=== PATIENT | female | born 1955 | race Caucasian/White ===

== ENCOUNTER 2017-12-17 12:25 | Day surgery (SDC) | payer SELFPAY ==
[2017-12-17] VITALS (8 sets, daily range): BP systolic 138–165; BP diastolic 72–88; PULSE 54–77; RESP 14–20; TEMP 97.7–98.1; O2SAT 96–99
[~2017-12-17 12:25] MED LIST: LIDOCAINE HCL 1% PF 5 ML SYRINGE OTHER ONE; PHENYLEPH/NS 1000 MCG/10 ML SYR IV ONE; PROPOFOL 200 MG/20 ML AMP IV ONE; ePHEDrine/NS 25 MG/5 ML SYRINGE IV ONE
--- NOTE | 2017-12-17 13:20 | PD ---
HPI Chief Complaint: Eye Problems/Injury Time Seen by Provider: 13:07 Travel History International Travel<30 days: No Contact w/Intl Traveler<30days: No Traveled to known affect area: No History of Present Illness HPI 62-year-old female with history of hypertension and hypothyroidism presents for evaluation of right eye blindness. Symptoms started 1 week ago. She was seen by retinal specialist Dr. Donnie Roland 5 days ago and diagnosed with a complete retinal detachment. She was referred here this morning by Dr. Roland. She reports that she is able to see shadows in her right eye but otherwise has acute significant decreased vision. Denies any pain. npo since last night except one sip of water this morning to swallow her morning pills. No other complaints at this time. [facility] Social History Alcohol Use: Yes Tobacco Use: No Allergies-Medications (Allergen,Severity, Reaction): Coded Allergies: No Known Allergies (Unverified , 12/17/17) Review of Systems General / Constitutional: No: Fever, Chills Eyes: Positive: Blurred Vision, Blindness, No: Pain Physical Exam Narrative GENERAL: Well-developed well-nourished female in no acute distress SKIN: Warm and dry. HEAD: Atraumatic. Normocephalic. EYES: Pupils equal and round reactive to light extraocular muscles are intact. No scleral icterus. No injection or drainage. ENT: No nasal bleeding or discharge. Mucous membranes pink and moist. NECK: Trachea midline. No JVD. CARDIOVASCULAR: Regular rate and rhythm. No murmur appreciated. RESPIRATORY: No accessory muscle use. Clear to auscultation. Breath sounds equal bilaterally. Data Data Last Documented VS Vital Signs Date Time Temp Pulse Resp B/P (MAP) Pulse Ox O2 Delivery O2 Flow Rate FiO2 12/17/17 12:48 97.7 60 14 162/82 (108) Orders Orders Complete Blood Count With Diff (12/17/17 12:51) Basic Metabolic Panel (Bmp) (12/17/17 12:51) Coag Profile (12/17/17 12:51) Chest, Pa & Lat (12/17/17 ) Electrocardiogram (12/17/17 ) Admit Order (Ed Use Only) (12/17/17 14:26) Labs Laboratory Tests Test 12/17/17 13:55 White Blood Count 4.8 TH/MM3 Red Blood Count 4.01 MIL/MM3 Hemoglobin 13.4 GM/DL Hematocrit 39.2 % Mean Corpuscular Volume 97.6 FL Mean Corpuscular Hemoglobin 33.5 PG Mean Corpuscular Hemoglobin Concent 34.3 % Red Cell Distribution Width 14.4 % Platelet Count 300 TH/MM3 Mean Platelet Volume 6.4 FL Neutrophils (%) (Auto) 45.0 % Lymphocytes (%) (Auto) 32.6 % Monocytes (%) (Auto) 11.4 % Eosinophils (%) (Auto) 10.4 % Basophils (%) (Auto) 0.6 % Neutrophils # (Auto) 2.2 TH/MM3 Lymphocytes # (Auto) 1.6 TH/MM3 Monocytes # (Auto) 0.5 TH/MM3 Eosinophils # (Auto) 0.5 TH/MM3 Basophils # (Auto) 0.0 TH/MM3 CBC Comment DIFF FINAL Differential Comment Prothrombin Time 10.8 SEC Prothromb Time International Ratio 1.1 RATIO Activated Partial Thromboplast Time 25.4 SEC MDM Medical Decision Making Medical Screen Exam Complete: Yes Emergency Medical Condition: Yes Medical Record Reviewed: Yes Differential Diagnosis Retinal detachment, vitreous hemorrhage, central retinal artery occlusion, CVA Narrative Course I discussed with Dr. Roland who plans on taking her to same day surgery today. Diagnosis Primary Impression: Retinal detachment Admitting Information Admitting Physician Requests: Michael Gage Dec 17, 2017 13:20
[2017-12-17 14:06] LABS: AUTOMATED NEUTROPHIL # 2.2 TH/MM3 (1.8-7.7); BASOPHIL % 0.6 % (0.0-2.0); EOSINOPHIL # 0.5 TH/MM3 (0-0.4); EOSINOPHIL % 10.4 % (0.0-4.0); HEMATOCRIT 39.2 % (35.0-46.0); HEMOGLOBIN 13.4 GM/DL (11.6-15.3); LYMPH % 32.6 % (9.0-44.0); LYMPHOCYTE # 1.6 TH/MM3 (1.0-4.8); MEAN CELL VOLUME 97.6 FL (80.0-100.0); MEAN CORPUSCULAR HEMOGLOBIN 33.5 PG (27.0-34.0); MEAN CORPUSCULAR HGB CONC 34.3 % (32.0-36.0); MEAN PLATELET VOLUME 6.4 FL (7.0-11.0); MONO % 11.4 % (0.0-8.0); MONOCYTE # 0.5 TH/MM3 (0-0.9); PLATELET COUNT 300 TH/MM3 (150-450); RED BLOOD COUNT 4.01 MIL/MM3 (4.00-5.30); RED CELL DISTRIBUTION WIDTH 14.4 % (11.6-17.2); WHITE BLOOD COUNT 4.8 TH/MM3 (4.0-11.0)
--- NOTE | 2017-12-17 14:12 | RADRPT ---
EXAM DATE/TIME: 12/17/2017 13:43 [facility] COMPARISON: No previous studies available for comparison. INDICATIONS : Evaluate for pneumonia, pneumothorax or communicable disease. Preop chest for repair of detached reti na today MEDICAL HISTORY : None. SURGICAL HISTORY : None. ENCOUNTER: Initial ACUITY: 1 day PAIN SCORE: 0/10 LOCATION: Bilateral chest FINDINGS: PA and lateral views of the chest demonstrate a normal-sized cardiac silhouette. There is no effusion , consolidation, or pneumothorax. The bones and soft tissues demonstrate no acute abnormality. Breast implants are present. CONCLUSION: No acute cardiopulmonary abnormality is identified. Yrn Del Valle MD on December 17, 2017 at 14:10 Board Certified Radiologist. This report was verified electronically.
[2017-12-17 14:14] LABS: INTERNATIONAL NORMALIZED RATIO 1.1 RATIO; PROTHROMBIN TIME - PATIENT 10.8 SEC (9.8-11.6)
[2017-12-17] MEDS ORDERED: LEVO.1 PO (14:29)
[2017-12-17] MEDS ORDERED: LISI20TA PO (14:29)
[2017-12-17 14:40] LABS: CALCIUM 9.6 MG/DL (8.5-10.1); CREATININE 0.77 MG/DL (0.50-1.00)
[2017-12-17] MEDS ORDERED: BALANCED SALT SOLN OPHT IRRIG 15 ML BTL ONE (17:42)
[2017-12-17] MEDS ORDERED: ceFAZolin INJ 1,000 MG VIAL ONE (17:42)
[2017-12-17] MEDS ORDERED: DEXAMETHASONE SOD PHOS 4 MG/ML VIAL ONE (17:42)
[2017-12-17] MEDS ORDERED: STERILE WATER FOR INJECTION 20 ML VIAL ONE (17:42)
[2017-12-17] MEDS ORDERED: TOBRAMYCIN/DEXAMETHASONE OPTH OINT 3.5 GM TUBE ONE (17:43)
[2017-12-17] MEDS ORDERED: TRIAMCINOLONE ACETONIDE 40 MG/ML VIAL ONE (17:43)
[2017-12-17] MEDS ORDERED: EPINEPHrine HCL (1:1000) 1 MG/ML VIAL ONE (17:43)
[2017-12-17] MEDS ORDERED: fentaNYL CITRATE 250 MCG/5 ML AMP ONE (18:37)
[2017-12-17] MEDS ORDERED: MOXIFLOXACIN 0.5% OPHT SOLN 3 ML BTL RIGHT EYE ONE (19:00)
[2017-12-17] MEDS ORDERED: PHENYLEPHRINE HCL 10% OPTH SOLN 5 ML BTL RIGHT EYE ONE (19:00)
[2017-12-17] MEDS ORDERED: prednisoLONE ACETATE 1% OPHT SUSP 5 ML BTL RIGHT EYE ONE (19:00)
[2017-12-17] MEDS: PHENYLEPHRINE HCL 2.5% OPTH SOLN 2 ML BTL RIGHT EYE SCH ×4 (19:05→19:27)
[2017-12-17] MEDS: CYCLOPENTOLATE HCL 1% OPHT SOLN 2 ML BTL RIGHT EYE SCH ×4 (19:05→19:27)
[2017-12-17] MEDS: ATROPINE SULFATE 1% OPHT SOLN 5 ML BTL RIGHT EYE SCH ×4 (19:05→19:27)
[2017-12-17] MEDS: TROPICAMIDE 1% OPHT SOLN 15 ML BTL RIGHT EYE SCH ×4 (19:05→19:27)
[2017-12-17] MEDS ORDERED: DO NOT ADM ANY ANTICOAGULANT DRUGS PRN (21:22)
[2017-12-17] MEDS ORDERED: *ONDANSETRON 4 MG VIAL PERIprocedural Use ONLY ONE (21:35)
[2017-12-17] MEDS ORDERED: ACETAMINOPHEN 325 MG TAB PO PRN (22:45)
--- NOTE | 2017-12-18 11:31 | EKG ---
Date Performed: 12/17/2017 Time Performed: 14:05:15 PTAGE: 62 years EKG: SINUS BRADYCARDIA BORDERLINE ECG NO PREVIOUS TRACING DOCTOR: Juan A Lopez Interpretating Date/Time 12/18/2017 11:28:06
--- NOTE | 2017-12-19 15:39 | PD ---
Physical Exam Date Seen by Provider: Dec 17, 2017 Time Seen by Provider: 14:00 Narrative I am seeing this patient with Michael Lazaro PA-C. This is a 62-year-old female who presents 1 week after having an episode of right-sided eye blindness. Seen and evaluated by Dr.Karl Loera who evaluated her and found her to have a complete right retinal detachment. The patient presents here today at the request of Dr. loera for presurgical evaluation. He intends to take her to the operating room and repair her detached retina. The patient has no new complaints today. Data Data Last Documented VS Vital Signs Date Time Temp Pulse Resp B/P (MAP) Pulse Ox O2 Delivery O2 Flow Rate FiO2 12/17/17 14:35 61 18 165/79 (107) 96 Room Air 12/17/17 12:48 97.7 Orders Orders Complete Blood Count With Diff (12/17/17 12:51) Basic Metabolic Panel (Bmp) (12/17/17 12:51) Coag Profile (12/17/17 12:51) Chest, Pa & Lat (12/17/17 ) Electrocardiogram (12/17/17 ) Admit Order (Ed Use Only) (12/17/17 14:26) Labs Laboratory Tests Test 12/17/17 13:55 White Blood Count 4.8 TH/MM3 Red Blood Count 4.01 MIL/MM3 Hemoglobin 13.4 GM/DL Hematocrit 39.2 % Mean Corpuscular Volume 97.6 FL Mean Corpuscular Hemoglobin 33.5 PG Mean Corpuscular Hemoglobin Concent 34.3 % Red Cell Distribution Width 14.4 % Platelet Count 300 TH/MM3 Mean Platelet Volume 6.4 FL Neutrophils (%) (Auto) 45.0 % Lymphocytes (%) (Auto) 32.6 % Monocytes (%) (Auto) 11.4 % Eosinophils (%) (Auto) 10.4 % Basophils (%) (Auto) 0.6 % Neutrophils # (Auto) 2.2 TH/MM3 Lymphocytes # (Auto) 1.6 TH/MM3 Monocytes # (Auto) 0.5 TH/MM3 Eosinophils # (Auto) 0.5 TH/MM3 Basophils # (Auto) 0.0 TH/MM3 CBC Comment DIFF FINAL Differential Comment Prothrombin Time 10.8 SEC Prothromb Time International Ratio 1.1 RATIO Activated Partial Thromboplast Time 25.4 SEC Blood Urea Nitrogen 17 MG/DL Creatinine 0.77 MG/DL Random Glucose 86 MG/DL Calcium Level 9.6 MG/DL Sodium Level 140 MEQ/L Potassium Level 3.9 MEQ/L Chloride Level 105 MEQ/L Carbon Dioxide Level 30.0 MEQ/L Anion Gap 5 MEQ/L Estimat Glomerular Filtration Rate 76 ML/MIN MDM Medical Record Reviewed: Yes Supervised Visit with KM: Yes Narrative Course 62-year-old female with one-week history of right I retinal detachment. The patient was sent here by her broadcast maintenance engineer for preop. Dr. Loera, broadcast maintenance engineer, has been notified that she is here. He will arrange to take her to same-day surgery to repair the retinal detachment. The patient will be admitted to same-day surgery and will be discharged from the same day surgical area. There are no complaints at this time other than her right eye blindness. Diagnosis Primary Impression: Right eye Retinal detachment Patient Instructions: Vitrectomy (DC), Regular Diet (DC), General Anesthesia ( DC) Hernan Gomez MD Dec 19, 2017 15:39
--- NOTE | 2017-12-23 15:39 | MP ---
cc: Donnie Roland MD DATE OF OPERATION: 12/17/2017 PREOPERATIVE DIAGNOSIS: Total retinal detachment, severe proliferative vitreoretinopathy, multiple retinal tears, right eye. POSTOPERATIVE DIAGNOSIS: Total retinal detachment, severe proliferative vitreoretinopathy, multiple retinal tears, right eye. PROCEDURE PERFORMED: Pars plana vitrectomy, complex retinal detachment repair, removal of PVR, air-fluid exchange, endolaser, insertion of 16% C3FA gas, right eye. COMPLICATIONS: None. ESTIMATED BLOOD LOSS: Less than 1 cc. ANESTHESIA: General. INDICATIONS FOR PROCEDURE: This is a patient who presented with severe vision loss, with a total retinal detachment present for a significant amount of time. The patient had severe proliferative vitreoretinopathy and multiple retinal tears. The patient elected for correction, understanding the risks, benefits and alternatives, including possible need for additional surgery and complications with proliferative vitreoretinopathy. PROCEDURE NOTE: After final consent was obtained, the patient was brought to the operating room, general anesthesia was established. The right eye was prepped and draped in sterile fashion with Betadine in the conjunctiva fornix. A three port pars plana vitrectomy was established with a self-containing cannula. Core vitreous was evacuated and peripheral vitreous traction was relieved. Areas of proliferative vitreoretinopathy were removed using Kaushal's vitrectomy and intraocular forceps. The PFO was then sealed and retina reattached. Endolaser was applied surrounding areas of dissection and multiple retinal tears. Air-fluid exchanged was carried out and retina remained nicely attached. A 16% C3FA gas was instilled. was removed and sclerotomies closed. Subconjunctival injection of Ancef and Dexamethasone were given. DISPOSITION AND RECOMMENDATIONS: The patient was brought to the recovery room in stable condition and will continue to followup with [facility] for her postoperative care. MD VICKEY Palm/MAYELA , 10:09 PM , 10:43 PM
== END 2017-12-17 23:30 | disposition home or self-care (01) ==
LOC: NEPE 12:25
PROVIDERS: ATTEND Ophthalmology
DX: H33.051 Total retinal detachment, right eye (principal); H33.41 Traction detachment of retina, right eye; I10 Essential (primary) hypertension; E03.9 Hypothyroidism, unspecified; H54.40 Blindness, one eye, unspecified eye; Z01.818 Encounter for other preprocedural examination; Z01.810 Encounter for preprocedural cardiovascular examination
CPT/HCPCS: 00145; 67108; 71046; 80048; 85025; 85610; 85730; 93005; 99285; J0171; J0690; J1100; J2370; J2405; J3010; J3301